=== PATIENT | female | born 1935 ===

== ENCOUNTER → 2017-08-29 | Outpatient (REF) | payer SELFPAY ==
[2017-08-29 15:03] LABS: MEAN CORPUSCULAR HEMOGLOBIN 30.8 pg (27.0-33.0); MEAN CORPUSCULAR HGB CONC 32.4 g/dl (32.0-36.5); MEAN CORPUSCULAR VOLUME 95.2 fl (80.0-96.0); PLATELET COUNT, AUTOMATED 361 10^3/uL (150-450); RED CELL DISTRIBUTION WIDTH 15.9 % (11.5-14.5); WHITE BLOOD COUNT 9.5 10^3/uL (4.0-10.0)
== END ==
LOC: M LAB REF 14:54
PROVIDERS: ATTEND Physical Medicine & Rehabilitation
DX: D64.9 Anemia, unspecified (principal)